=== PATIENT | male | born 1945 | race Hispanic/Latino ===

== ENCOUNTER → 2023-07-02 | Outpatient (CLI) | payer OTHER ==
[2023-07-02 12:46] LABS: CREATININE 1.1 mg/dL (0.5-1.5)
== END | disposition home or self-care (01) ==
LOC: LAB 10:51
PROVIDERS: ATTEND Internal Medicine Cardiovascular Disease
DX: I73.9 Peripheral vascular disease, unspecified (principal)
CPT/HCPCS: 36415; 82565; 84520

== ENCOUNTER → 2023-07-05 | Outpatient (CLI) | payer OTHER ==
[~2023-07-05] MED LIST: IOHEXOL 350 MG/ML 100ML INFUS..BTL IV ONE; IOHEXOL-350 50ML VIAL IV ONE
== END | disposition home or self-care (01) ==
LOC: RAH 10:08
PROVIDERS: ATTEND Internal Medicine Cardiovascular Disease
DX: N28.1 Cyst of kidney, acquired (principal); I73.9 Peripheral vascular disease, unspecified; I70.8 Atherosclerosis of other arteries
CPT/HCPCS: 75635; Q9967 ×2